=== PATIENT | female | born 1965 | race Two or more races ===

== ENCOUNTER 2016-08-04 23:59 | Emergency (ER) | payer OTHER ==
--- NOTE | ~2016-08-04 | CR141 ---
[facility] A Service of [facility] & [facility] RADIOLOGY TEXT RESULTS PATIENT: DYLAN POMPA LOCATION: [facility] : 61 UNIT #: [id number] AGE: [address]: Cedric Archer MD SEX: F ORDER DR: [id number] [facility] [address] [facility]. [place], [place] [address] [id number] E MR#: [id number] Acc #: [id number] NAME: DYLAN POMPA : 1965 SEX: F STUDY DATE/TIME: 08/05/2016 1:03 UNIT: [facility] ROOM: STUDY DESCRIPTION: CR Hand Min 3 Views Lt Attending Physician: Cedric Archer M.D. Ordering Physician: Cedric Archer M.D. Primary Care Physician: Primary Care Physician No MEDICAL IMAGING REPORT This report is preliminary unless electronic signature is present EXAM Left hand series INDICATIONS Left hand pain after fall today. PROCEDURE 3 views left hand COMPARISON None. FINDINGS No acute fracture or dislocation. IMPRESSION No acute findings. Dictated by... Phillip Aguirre M.D. THIS IS AN ELECTRONICALLY VERIFIED REPORT Phillip Aguirre M.D. at 08/05/2016 9:56 PM Dori TD: 08/05/2016 07:45 JOB #: [id number] MEDICAL IMAGING REPORT Page 1 of 1 COPY
--- NOTE | ~2016-08-04 | CR132 ---
[facility] A Service of [facility] / [facility] RADIOLOGY TEXT RESULTS PATIENT: DYLAN POMPA LOCATION: [facility] : 61 UNIT #: [id number] AGE: [address]: Cderic Archer MD SEX: F ORDER DR: [id number] [facility] [address]. [place], [place] [address] [id number] E MR#: [id number] Acc #: [id number] NAME: DYLAN POMPA : 1965 SEX: F STUDY DATE/TIME: 08/05/2016 1:01 UNIT: [facility] ROOM: STUDY DESCRIPTION: CR Forearm 2 View Lt Attending Physician: Cedric Archer M.D. Ordering Physician: Cedric Archer M.D. Primary Care Physician: Primary Care Physician No MEDICAL IMAGING REPORT This report is preliminary unless electronic signature is present EXAM Left forearm series INDICATIONS Left forearm pain after fall today. PROCEDURE 2 views left forearm. COMPARISON None. FINDINGS No acute fracture or dislocation. IMPRESSION No acute findings Dictated by... Phillip Aguirre M.D. THIS IS AN ELECTRONICALLY VERIFIED REPORT Phillip Aguirre M.D. at 08/05/2016 9:56 PM Dori TD: 08/05/2016 07:44 JOB #: [id number] MEDICAL IMAGING REPORT Page 1 of 1 COPY
--- NOTE | ~2016-08-04 | CR281 ---
[facility] A Service of [facility] RADIOLOGY TEXT RESULTS PATIENT: DYLAN POMPA LOCATION: [facility] : 61 UNIT #: [id number] AGE: [address]: Cedric Archer MD SEX: F ORDER DR: [id number] [facility] [address] [facility]. [place], [place] [address] [id number] E MR#: [id number] Acc #: [id number] NAME: DYLAN POMPA : 1965 SEX: F STUDY DATE/TIME: 08/05/2016 1:02 UNIT: [facility] ROOM: STUDY DESCRIPTION: CR Wrist Min 3 View Lt Attending Physician: Cedric Archer M.D. Ordering Physician: Cedric Archer M.D. Primary Care Physician: Primary Care Physician No MEDICAL IMAGING REPORT This report is preliminary unless electronic signature is present EXAM Left wrist series INDICATIONS Left wrist pain after fall today. PROCEDURE Three-views left wrist COMPARISON None. FINDINGS No acute fracture or dislocation. IMPRESSION No acute findings Dictated by... Phillip Aguirre M.D. THIS IS AN ELECTRONICALLY VERIFIED REPORT Phillip Aguirre M.D. at 08/05/2016 9:56 PM Dori TD: 08/05/2016 07:43 JOB #: [id number] MEDICAL IMAGING REPORT Page 1 of 1 COPY
--- NOTE | ~2016-08-04 | CR142 ---
[facility] A Service of [facility] & [facility] / [facility] RADIOLOGY TEXT RESULTS PATIENT: DYLAN POMPA LOCATION: [facility] : 61 UNIT #: [id number] AGE: [address]: Cedric Archer MD SEX: F ORDER DR: [id number] [facility] [address] [facility]. [place], [place] [address] [id number] E MR#: [id number] Acc #: [id number] NAME: DYLAN POMPA : 1965 SEX: F STUDY DATE/TIME: 08/05/2016 1:05 UNIT: [facility] ROOM: STUDY DESCRIPTION: CR Hand Min 3 Views Rt Attending Physician: Cedric Archer M.D. Ordering Physician: Cedric Archer M.D. Primary Care Physician: Primary Care Physician No MEDICAL IMAGING REPORT This report is preliminary unless electronic signature is present EXAM Right hand series INDICATIONS Right hand pain after fall today. PROCEDURE 3 views right hand COMPARISON None FINDINGS No acute fracture, no dislocation. IMPRESSION No acute findings Dictated by... Phillip Aguirre M.D. THIS IS AN ELECTRONICALLY VERIFIED REPORT Phillip Aguirre M.D. at 08/05/2016 9:56 PM MANJINDER/mejia TD: 08/05/2016 07:45 JOB #: [id number] MEDICAL IMAGING REPORT Page 1 of 1 COPY
--- NOTE | ~2016-08-04 | CT52 ---
[facility] A Service of [facility] RADIOLOGY TEXT RESULTS PATIENT: DYLAN POMPA LOCATION: [facility] : 61 UNIT #: [id number] AGE: [address]: Cedric Archer MD SEX: F ORDER DR: [id number] [facility] [address] [facility]. [place], [place] [address] [id number] E MR#: [id number] Acc #: [id number] NAME: DYLAN POMPA : 1965 SEX: F STUDY DATE/TIME: 08/05/2016 0:45 UNIT: [facility] ROOM: STUDY DESCRIPTION: CT Cervical Spine Wo Cont Attending Physician: Cedric Archer M.D. Ordering Physician: Cedric Archer M.D. Primary Care Physician: Primary Care Physician No MEDICAL IMAGING REPORT This report is preliminary unless electronic signature is present EXAM CT cervical spine without contrast INDICATIONS Neck pain after fall today. PROCEDURE Unenhanced CT cervical spine. This CT exam was performed with one or more of the following radiation dose reduction techniques: automatic exposure control, adjustment of mA and/or kV according to patient size, and iterative reconstruction. COMPARISON None FINDINGS Cervical bodies have normal height. Alignment is preserved. The craniocervical junction and the dens are intact. No acute fracture. No critical central canal narrowing. Degenerative disc disease and facet arthrosis at multiple levels. Degenerative disc disease most significant at C5-C6 and C6-C7. IMPRESSION No acute fracture or subluxation. Dictated by... Phillip Aguirre M.D. THIS IS AN ELECTRONICALLY VERIFIED REPORT Phillip Aguirre M.D. at 08/05/2016 9:56 PM EED/rogelio [facility] A Service [facility] RADIOLOGY TEXT RESULTS PATIENT: DYLAN POMPA LOCATION: [facility] : 61 UNIT #: [id number] AGE: [address]: Cedric Archer MD SEX: F ORDER DR: TD: 08/05/2016 07:34 JOB #: [id number] MEDICAL IMAGING REPORT Page 1 of 1 COPY
--- NOTE | ~2016-08-04 | CT101 ---
[facility] A Service of [facility] RADIOLOGY TEXT RESULTS PATIENT: DYLAN POMPA LOCATION: [facility] : 61 UNIT #: [id number] AGE: [address]: Cedric Archer MD SEX: F ORDER DR: [id number] [place] [address] [facility]. [place], [place] [address] [id number] E MR#: [id number] Acc #: [id number] NAME: DYLAN POMPA : 1965 SEX: F STUDY DATE/TIME: 08/05/2016 0:43 UNIT: [facility] ROOM: STUDY DESCRIPTION: CT Maxillofacial Area Wo Cont Attending Physician: Cedric Archer M.D. Ordering Physician: Cedric Archer M.D. Primary Care Physician: Primary Care Physician No MEDICAL IMAGING REPORT This report is preliminary unless electronic signature is present EXAM CT facial bones without contrast INDICATIONS Fall tonight with left supraorbital laceration. PROCEDURE Unenhanced CT of the facial bones. The CT exam was performed with one or more of the following radiation dose reduction techniques: automatic exposure control, adjustment of mA and/or kV according to patient size, and iterative reconstruction. COMPARISON: None FINDINGS: Left frontal supraorbital soft tissue laceration. No fracture. Globes are intact. Lenses are located. IMPRESSION Left frontal scalp and left supraorbital laceration. No acute fracture. Dictated by... Phillip Aguirre M.D. THIS IS AN ELECTRONICALLY VERIFIED REPORT Phillip Aguirre M.D. at 08/05/2016 9:56 PM EED/mejia TD: 08/05/2016 07:32 JOB #: [id number] MEDICAL IMAGING REPORT [facility] A Service [facility] RADIOLOGY TEXT RESULTS PATIENT: DYLAN POMPA LOCATION: [facility] : 61 UNIT #: [id number] AGE: [address]: Cedric Archer MD SEX: F ORDER DR: Page 1 of 1 COPY
--- NOTE | ~2016-08-04 | CT71 ---
[facility] A Service of [facility] RADIOLOGY TEXT RESULTS PATIENT: YDLAN POMPA LOCATION: [facility] : 61 UNIT #: [id number] AGE: [address]: Cedric Archer MD SEX: F ORDER DR: [id number] [facility] [address]. [place], [place] [address] [id number] E MR#: [id number] Acc #: [id number] NAME: DYLAN POMPA : 1965 SEX: F STUDY DATE/TIME: 08/05/2016 0:37 UNIT: [facility] ROOM: STUDY DESCRIPTION: CT Head Wo Contrast Attending Physician: Cedric Archer M.D. Ordering Physician: Cedric Archer M.D. Primary Care Physician: Primary Care Physician No MEDICAL IMAGING REPORT This report is preliminary unless electronic signature is present EXAM CT head without contrast INDICATIONS Frontal headache after a fall today. PROCEDURE Unenhanced CT of the head COMPARISON None. This CT exam was performed with one or more of the following radiation dose reduction techniques: automatic exposure control, adjustment of mA and/or kV according to patient size, and iterative reconstruction. FINDINGS No acute hemorrhage. No abnormal mass effect, extraaxial collection or hydrocephalus. Left frontal and supraorbital laceration. Paranasal sinuses, mastoid air cells clear. IMPRESSION Left frontal scalp and left supraorbital laceration. No underlying fracture is seen and there is no acute intracranial finding. Dictated by... Phillip Aguirre M.D. THIS IS AN ELECTRONICALLY VERIFIED REPORT Phillip Aguirre M.D. at 08/05/2016 9:56 PM EED/rogelio TD: 08/05/2016 07:33 [facility] A Service [facility] RADIOLOGY TEXT RESULTS PATIENT: DYLAN POMPA LOCATION: [facility] : 61 UNIT #: [id number] AGE: [address]: Cedric Archer MD SEX: F ORDER DR: JOB #: [id number] MEDICAL IMAGING REPORT Page 1 of 1 COPY
== END 2016-08-05 03:06 | disposition home or self-care (01) ==
LOC: CED 23:59
DX: S01.112A Laceration without foreign body of left eyelid and periocular area, initial encounter (principal); S60.212A Contusion of left wrist, initial encounter; S60.221A Contusion of right hand, initial encounter; F17.210 Nicotine dependence, cigarettes, uncomplicated; W18.09XA Striking against other object with subsequent fall, initial encounter; Y92.098 Other place in other non-institutional residence as the place of occurrence of the external cause
CPT/HCPCS: 12013; 29125; 70450; 70486; 72125; 73090; 73110; 73130; 96372; 99284; J1885

== ENCOUNTER 2016-08-20 16:34 | Emergency (ER) | payer OTHER | END 2016-08-20 17:05 | disposition home or self-care (01) | LOC: CFTX 16:34 | DX: S01.81XD Laceration without foreign body of other part of head, subsequent encounter (principal); F17.210 Nicotine dependence, cigarettes, uncomplicated; W10.9XXD Fall (on) (from) unspecified stairs and steps, subsequent encounter | CPT/HCPCS: 99281 ==

== ENCOUNTER 2016-11-12 12:14 | Emergency (ER) | payer OTHER ==
--- NOTE | ~2016-11-12 | CR63 ---
[facility] A Service of [facility] RADIOLOGY TEXT RESULTS PATIENT: DYLAN RANDALL LOCATION: [facility] : 61 UNIT #: [id number] AGE: [address]: Valerie Lange APRN SEX: F ORDER DR: [id number] [facility] [address]. [place], [place] [address] [id number] E MR#: [id number] Acc #: [id number] NAME: DYLAN RANDALL : 1965 SEX: F STUDY DATE/TIME: 11/12/2016 12:40 UNIT: [facility] ROOM: STUDY DESCRIPTION: CR Chest 2 View Attending Physician: Valerie Lange A.P.R.N. Ordering Physician: Ed Amando Coburn M.D. Primary Care Physician: No Primary Care Physician MEDICAL IMAGING REPORT This report is preliminary unless electronic signature is present EXAM Chest, 2 views; 11/12/2016, 1240 hours. CLINICAL HISTORY Patient complains of left rib pain after falling off a chair 2 days ago. History of hypertension and tachycardia. COMPARISON 04/17/2016 FINDINGS Upright PA and lateral views of the chest demonstrate normal heart size with stable mildly tortuous aorta. The lungs are well expanded and clear. There is no pleural effusion or pneumothorax. There is no vertebral or rib fracture seen. IMPRESSION No acute cardiopulmonary findings. No change from 04/17/2016. There is no pleural effusion, pneumothorax or fracture seen. Dictated by... Allyson Sexton M.D. THIS IS AN ELECTRONICALLY VERIFIED REPORT Allyson Sexton M.D. at 11/13/2016 9:34 AM Chet[place] TD: 11/12/2016 18:10 JOB #: [id number] MEDICAL IMAGING REPORT Page 1 of 1 COPY
== END 2016-11-12 13:46 | disposition home or self-care (01) ==
LOC: CED 12:14 → CFTX 12:14
DX: S20.212A Contusion of left front wall of thorax, initial encounter (principal); I10 Essential (primary) hypertension; F17.210 Nicotine dependence, cigarettes, uncomplicated; W01.10XA Fall on same level from slipping, tripping and stumbling with subsequent striking against unspecified object, initial encounter; Y92.009 Unspecified place in unspecified non-institutional (private) residence as the place of occurrence of the external cause
CPT/HCPCS: 71020; 99284